=== PATIENT | female | born 1995 | race Caucasian/White ===

== ENCOUNTER 2019-07-23 05:36 | Outpatient (CLI) | payer OTHER ==
[~2019-07-23] VITALS: Ht 170 cm; Wt 59.0 kg
[~2019-07-23 05:36] MED LIST: CYCL10TA9 PO; HYDR-707 PO; PNT40TEC PO
[2019-07-24] MEDS ORDERED: OXC5T PO (13:50)
[2019-07-24] MEDS ORDERED: ACET-77 PO (13:50)
[2019-07-24] MEDS ORDERED: IBUP-1780 PO (13:50)
== END 2019-07-23 10:02 ==
LOC: PREOP 05:36
PROVIDERS: ATTEND Obstetrics & Gynecology
DX: Z01.818 Encounter for other preprocedural examination (principal); N80.9 Endometriosis, unspecified; G89.29 Other chronic pain